=== PATIENT | female | born 1935 | race Caucasian/White ===

== ENCOUNTER 2019-07-03 10:28 | Outpatient (CLI) | payer MEDICARE ==
[2019-07-03 11:44] LABS: #Eosinphils 0.2 thou/uL (0.0-0.7); #Lymphocytes 1.9 thou/uL (1.20-3.40); #Monocytes 0.4 thou/uL (0.11-0.59); #Neutrophils 4.4 thou/uL (1.40-6.50); %Basophils 0.4 % (0.0-1.0); %Eosinophils 3.3 % (0.0-10.0); %Lymphocytes 26.7 % (21.0-51.0); %Monocytes 6.1 % (0.0-10.0); %Neutrophils 63.6 % (42.0-75.0); Hemoglobin 13.4 g/dL (12.0-16.0); Mean Corpuscular HGB CONC 33.9 g/dL (32.0-36.0); Mean Corpuscular Hemoglobin 33.2 pg (27.0-31.0); Mean Platelet Volume 6.6 fL (7.4-10.4); Platelet Count 227 thou/uL (130-400); RBC Distribution Width 11.8 % (11.5-14.5); Red Blood Cell (RBC) Count 4.04 mill/uL (4.20-5.40)
[2019-07-03 11:51] LABS: INR-International Normal Ratio 1.3; PTT 38.8 SEC (22.9-36.1)
[2019-07-03 12:08] LABS: ALT (SGPT) 21 U/L (8-55); AST (SGOT) 24 U/L (5-34); Albumin 4.4 g/dL (3.4-4.8); Alkaline Phosphatase 84 U/L (40-150); Anion Gap 14 mmol/L (10-20); BUN (Urea Nitrogen) 22 mg/dL (9.8-20.1); Bilirubin, Total 0.9 mg/dL (0.2-1.2); Calc. Creatinine Clearance 0 mL/min (70-130); Carbon Dioxide 25 mmol/L (23-31); Cardiac Risk 2.9 (Less than 4.5); Chloride 105 mmol/L (98-107); Cholesterol 155 mg/dl (< 200 Desired); Estimated GFR-MDRD 68; Globulin 2.5 g/dL (2.4-3.5); Glucose 93 mg/dL (83-110); HDL Cholesterol 53 mg/dL (>60 Neg Risk); LDL Cholesterol, Calculated 83 mg/dL; Potassium 4.2 mmol/L (3.5-5.1); Protein, Total 6.9 g/dL (6.0-8.3); Sodium 140 mmol/L (136-145); Triglycerides 96 mg/dL (Less than 150)
== END 2019-07-03 10:29 | disposition home or self-care (01) ==
LOC: LABBT 10:28
PROVIDERS: ATTEND Internal Medicine Cardiovascular Disease
DX: Z01.812 Encounter for preprocedural laboratory examination (principal)
CPT/HCPCS: 80053; 80061; 85025; 85610; 85730

== ENCOUNTER 2019-07-07 06:47 | Day surgery (SDC) | payer MEDICARE ==
[2019-07-07] MEDS ORDERED: Nitroglycerin 100MG/250ML BOT 250 ML ONE (10:24)
[2019-07-07] MEDS ORDERED: Lidocaine 1% (PF) 30 ML VIAL ONE (10:24)
[2019-07-07] MEDS ORDERED: Verapamil 5 MG/2 ML VIAL ONE (10:24)
[2019-07-07] MEDS ORDERED: Heparin 10,000 UNITS/1 ML VIAL ONE (10:24)
[2019-07-07] MEDS ORDERED: Midazolam HCl 2 mg/2 ml Vial ONE (10:56)
[2019-07-07] MEDS ORDERED: Fentanyl 100 MCG/2 ML VIAL ONE (10:56)
[2019-07-07] MEDS ORDERED: Iopamidol 370 76% 100 ML VIAL ONE (14:03)
== END 2019-07-07 15:20 | disposition home or self-care (01) ==
LOC: CCL 06:47
PROVIDERS: ATTEND Internal Medicine Cardiovascular Disease
PROC: 4A023N7 Measurement of Cardiac Sampling and Pressure, Left Heart, Percutaneous Approach (ICD-10-PCS; principal; 2019-07-07)
PROC: B2051ZZ Plain Radiography of Left Heart using Low Osmolar Contrast (ICD-10-PCS; 2019-07-07)
DX: I48.91 Unspecified atrial fibrillation (principal); I27.20 Pulmonary hypertension, unspecified; I10 Essential (primary) hypertension; I42.0 Dilated cardiomyopathy; E78.5 Hyperlipidemia, unspecified; M19.90 Unspecified osteoarthritis, unspecified site; Z87.891 Personal history of nicotine dependence; Z79.82 Long term (current) use of aspirin; Z79.899 Other long term (current) drug therapy; Z88.1 Allergy status to other antibiotic agents; Z88.2 Allergy status to sulfonamides
CPT/HCPCS: 93458; 99152; 99153; C1769; J1644; J2001; J2250; J3010; Q9967

== ENCOUNTER 2019-12-17 12:36 | Outpatient (CLI) | payer MEDICARE ==
--- NOTE | 2019-12-17 13:05 | RAD ---
EXAM: Two views chest PROVIDED CLINICAL HISTORY: No acute COMPARISON: 02/22/2015. FINDINGS: Cardiac silhouette is enlarged. The pulmonary vasculature is within normal limits. There is elevation of left hemidiaphragm with linear scar versus atelectasis at the left lung base. The lungs are otherwise clear. Previously seen bilateral pleural effusions are no longer visualized. Vascular calci fication are again seen in the thoracic aorta. Right convex scoliosis thoracolumbar spine is noted. Degenerative changes are seen in the spine. No other interval change. IMPRESSION: 1. Cardiomegaly without overt CHF. 2. Minimal linear scar versus atelectasis left lung base. Elevation left hemidiaphragm is present. 3. No acute cardiopulmonary process.
== END 2019-12-17 12:37 | disposition home or self-care (01) ==
LOC: RAD 12:36
PROVIDERS: ATTEND Internal Medicine Critical Care Medicine
DX: R06.00 Dyspnea, unspecified (principal); I51.7 Cardiomegaly; Q79.1 Other congenital malformations of diaphragm
CPT/HCPCS: 71046

== ENCOUNTER 2022-04-23 13:00 | Outpatient (CLI) | payer MEDICARE | END 2022-04-23 13:01 | disposition home or self-care (01) | LOC: RAD 13:00 | PROVIDERS: ATTEND Internal Medicine | DX: R06.02 Shortness of breath (principal) | CPT/HCPCS: 71046 ==

== ENCOUNTER 2022-12-04 10:00 | Day surgery (SDC) | payer MEDICARE ==
[2022-12-03 13:28] VITALS: BMI 29.2
[~2022-12-04 10:00] MED LIST: Activase 2 MG VIAL FS SCH; EPINEPHrine 0.3 MG in Ophthalmic Irrigation Solution 500 ML IRR SCH
[2022-12-04] MEDS ORDERED: Cyclopentolate 1% Opth Drop 2 ML BOT ONE (10:26)
[2022-12-04] MEDS ORDERED: Phenylephrine 2.5% Ophth Soln 5 ML BOT ONE (10:26)
[2022-12-04] MEDS ORDERED: fentaNYL PF 100 MCG/2 ML SYRINGE ONE (11:49)
[2022-12-04] MEDS ORDERED: Midazolam HCl 2 mg/2 ml Vial ONE (11:49)
[2022-12-04] MEDS ORDERED: Ondansetron PF 4 MG/2 ML Vial ONE (12:15)
[2022-12-04] MEDS ORDERED: Lidocaine 1% PF 5 ML VIAL ONE (12:15)
[2022-12-04] MEDS ORDERED: PROPOFOL 200 MG/20 ML VIAL ONE (12:15)
[2022-12-04] MEDS ORDERED: Lidocaine 4% PF 5 ML AMP ONE (12:15)
[2022-12-04] MEDS ORDERED: Bupivacaine 0.75% 10 ML VIAL ONE (12:15)
[2022-12-04] MEDS ORDERED: Maxitrol 0.1% Opth Oint 3.5 GM TUBE ONE (12:15)
[2022-12-04] MEDS ORDERED: CEFAZOLIN 1 GM VIAL ONE (12:15)
[2022-12-04] MEDS ORDERED: Triamcinolone 40 MG/ML VIAL ONE (12:15)
== END 2022-12-04 14:48 | disposition home or self-care (01) ==
LOC: SDC 10:00
PROVIDERS: ATTEND Ophthalmology Retina Specialist
PROC: 08T43ZZ Resection of Right Vitreous, Percutaneous Approach (ICD-10-PCS; principal; 2022-12-04)
DX: H35.61 Retinal hemorrhage, right eye (principal); Z79.01 Long term (current) use of anticoagulants; Z79.82 Long term (current) use of aspirin; Z79.899 Other long term (current) drug therapy; Z88.1 Allergy status to other antibiotic agents; Z88.2 Allergy status to sulfonamides; Z98.41 Cataract extraction status, right eye; Z98.42 Cataract extraction status, left eye; Z96.1 Presence of intraocular lens
CPT/HCPCS: 67025; 67036; J2997; J0171; J0690; J2250; J2405; J2704; J3301; J3490